=== PATIENT | male | born 1965 | race Caucasian/White ===

== ENCOUNTER → 2020-01-21 | Outpatient (CLI) | payer BC ==
[2014-02-12 16:15] VITALS: BP 128/74
[~2020-01-21] MED LIST: ASPI325T11 PO; ATOR40TA PO; LEVO150T5 PO; LISI10TA2 PO; TERB250T PO
--- NOTE | 2020-01-21 13:34 | RAD ---
CT THORAX WO INDICATION: Reason: SMOKER X 30 YEARS, CHRONIC COUGH, LUQ PAIN / Spl. Instructions: / History: . COMPARISON STUDY: None. TECHNIQUE: Unenhanced axial images were obtained through the lungs and upper abdomen. Coronal and sa gittal multiplanar reconstructions were also obtained. PQRS compliance statement: One or more of the following individualized dose reduction techniques were utilized for this examinat ion: 1. Automated exposure control 2. Adjustment of the mA and/or kV according to patient size 3. Use of iterative reconstruction technique FINDINGS: Lungs and Airways: No pulmonary mass or confluent consolidation. Mild ill-defined upper lung centrilo bular groundglass nodules. Few indeterminate solid pulmonary nodules with brand representative nodule as fo llows: Left lower lobe 4 mm nodule (series 5 image 226). Normal central airways. Pleura: The pleural spaces are normal. Heart and Mediastinum: The visualized thyroid gland is normal in size and attenuation. No axillary or supraclavicular lymphadenopathy. No mediastinal, hilar or retrocrural lymphadenopathy. Calcified med iastinal and right hilar lymph nodes consistent with remote granulomatous disease. The heart and mamie cardium are within normal limits. The great vessels of the thorax are normal. Abdomen: The visualized abdominal organs demonstrate no abnormality. Bones and Soft Tissues: The visualized skeletal structures and soft tissues of the chest wall are wit hin normal limits. IMPRESSION: 1. No pulmonary mass or consolidation. No thoracic lymphadenopathy. 2. Mild ill-defined upper lung centrilobular groundglass nodules, probably respiratory bronchiolitis. 3. Few small indeterminate solid pulmonary nodules measuring up to 4 mm. Consider optional 12 month f ollow-up CT, given risk factors. Electronically signed by: James Hi MD (01/21/2020 12:17 PM) [id number]
== END ==
LOC: CT 09:45
PROVIDERS: ATTEND Physician Assistant
DX: R91.1 Solitary pulmonary nodule (principal); R05 Cough; F17.200 Nicotine dependence, unspecified, uncomplicated
CPT/HCPCS: 71250

== ENCOUNTER → 2020-03-07 | Outpatient (CLI) | payer BC ==
[2014-02-12 16:15] VITALS: BP 128/74
--- NOTE | 2020-03-07 12:16 | RAD ---
Scrotal ultrasound 03/07/2020 CLINICAL HISTORY: Scrotal mass. TECHNIQUE: Using a combination of real-time ultrasound imaging and color-flow and pulse Doppler imagi ng techniques, duplex evaluation of the scrotal sac and its contents was performed. Multiple images w ere obtained. FINDINGS: Both testicles are within normal limits in size and echogenicity. The right testicle measur es 4.1 x 3.2 x 3.1 cm in longitudinal, transverse, and AP dimensions. The left testicle measures 4.3 x 2.8 x 2.6 cm in size. Normal color-flow and pulse Doppler imaging to both testicles is seen. A 1.1 cm cyst is seen involving the right epididymal head. The right epididymis is enlarged. Increase d color flow to the right epididymis is seen compared to the left. These findings could reflect epidi dymitis. The left epididymis is normal in size and echogenicity. No hydrocele or varicocele is seen. IMPRESSION: 1. 1.1 cm cyst is seen involving the right epididymal head. 2. Findings suggestive of right epididymitis. Electronically signed by: Dc Nath MD (03/07/2020 12:13 PM) [id number]
== END ==
LOC: US 09:59
PROVIDERS: ATTEND Physician Assistant
DX: N50.3 Cyst of epididymis (principal); N50.89 Other specified disorders of the male genital organs
CPT/HCPCS: 76870

== ENCOUNTER 2021-06-05 00:48 | Emergency (ER) | payer BC ==
[~2021-06-05] VITALS: Ht 172.7 cm; Wt 82.0 kg
[~2021-06-05 00:48] MED LIST changes: +LISI10TA16 PO; -LISI10TA2 PO
--- NOTE | 2021-06-05 01:11 | PHYS DOC ---
Past History Past Medical History: Other Past Surgical History: Other Additional Past Surgical Histo: BKA Alcohol Use: Occasionally Drug Use: None Adult General Chief Complaint Chief Complaint: CHEST PAIN HPI HPI Patient is a 56-year-old male with a past medical history of hypertension and hypothyroidism who presents with a chief complaint of intermittent centralized chest discomfort, 6 out of 10 at its worst, with no radiation over the past 6 hours. Denies any recent trauma, travels, illnesses, fevers dyspnea on exertion, orthopnea, PND or edema. Denies any abdominal pain, nausea, vomiting, diarrhea. Denies any known ill contacts. Denies any history of VTE. Denies any numbness/weakness/tingling. Denies any trouble sitting, standing or walking. Review of Systems Review of Systems Review of systems otherwise unremarkable except noted in HPI Allergies Allergies Allergies Coded Allergies Type Severity Reaction Last Updated Verified No Known Drug Allergies 06/05/21 No Physical Exam Physical Exam Constitutional: Well developed, well nourished, no acute distress, non-toxic appearance. [] HENT: Normocephalic, atraumatic, bilateral external ears normal, oropharynx moist, no oral exudates, nose normal. [] Eyes: conjunctiva normal, no discharge. [] Neck: Normal range of motion, no tenderness, supple, no stridor. [] Cardiovascular:Heart rate regular rhythm, no murmur [] Lungs & Thorax: Bilateral breath sounds clear to auscultation [] Abdomen: soft, no tenderness, no masses, no pulsatile masses. [] Skin: Warm, dry, no erythema, no rash. [] Back: No tenderness, no CVA tenderness. [] Extremities: No tenderness, no cyanosis, no clubbing, ROM intact, no edema. [] Neurologic: Alert and oriented X 3, normal motor function, normal sensory function, able to sit, stand and walk without issue, no focal deficits noted. [] Psychologic: Affect normal, judgement normal, mood normal. [] Current Patient Data Vital Signs Vital Signs Date Time Temp Pulse Resp B/P (MAP) Pulse Ox O2 Delivery O2 Flow Rate FiO2 06/05/21 00:55 97.7 68 18 163/95 (117) 100 EKG EKG [] Radiology/Procedures Radiology/Procedures [] Heart Score C/O Chest Pain: Yes HEART Score for Chest Pain: HEART Score for Chest Pain Response (Comments) Value History Slighlty/Non-Suspicious 0 ECG Normal 0 Age >45 - < 65 1 Risk Factors 1 or 2 Risk Factors 1 Troponin < Normal Limit 0 Total 2 Risk Factors: Risk Factors: DM, Current or recent (<one month) smoker, HTN, HLP, family history of CAD, obesity. Risk Scores: Risk Factors: DM, Current or recent (<one month) smoker, HTN, HLP, family history of CAD, obesity. Course & Med Decision Making Course & Med Decision Making Patient is a 56-year-old male who presents with a chief complaint of 6 hours of intermittent chest discomfort. No symptoms in the emergency department however. Vital signs notable for hypertension. Physical exam noted above. EKG with a normal rate, normal rhythm, no STEMI. Troponin normal. Low risk Wells. Dimer negative. Chest x-ray suggestive of emphysema. Patient is greater than [id number] smoker. States he is been thinking about quitting. Discussed benefits of quitting and risks of continuing. Advised to follow-up in the morning with primary care physician to discuss these issues. Discussed initial plan of nicotine patch and gum. Gave strict return precautions to the ED. Patient grateful, verbalized understanding and agreed with plan of discharge. [] Dragon Disclaimer Dragon Disclaimer This electronic medical record was generated, in whole or in part, using a voice recognition dictation system. Departure Departure: Impression: Primary Impression: Chest pain Additional Impression: Emphysema of lung Disposition: HOME / SELF CARE / HOMELESS Condition: STABLE Referrals: SUSANNE FULTON (PCP) Patient Instructions: Chest Pain (Nonspecific), Chronic Obstructive Pulmonary Disease, Chronic Obstructive Pulmonary Disease Exacerbation Additional Instructions: Thank you for coming into the emergency department tonight and allowing us to take care of you. Please read the attached information carefully to go over things we discussed. It is very important that you follow-up in the morning with your primary care physician to update on your ED visit and set up a follow- up as soon as you can for reevaluation. Please continue take all your medications as prescribed. Please come back to the emergency department with new or concerning symptoms as we discussed. Problem Qualifiers JAKE MONAHAN MD Jun 05, 2021 01:11
[2021-06-05 01:39] LABS: CALCIUM 8.8 mg/dL (8.5-10.1); CREATININE 1.2 mg/dL (0.7-1.3); GFR 62.9; POTASSIUM 4.3 mmol/L (3.5-5.1)
[2021-06-05 01:45] LABS: ALBUMIN 3.5 g/dL (3.4-5.0); ALBUMIN/GLOBULIN RATIO 1.2 (1.0-1.7); TOTAL BILIRUBIN 0.4 mg/dL (0.2-1.0); TOTAL PROTEIN 6.4 g/dL (6.4-8.2)
[2021-06-05 02:01] LABS: BASO # 0.1 x10^3/uL (0.0-0.2); BASO % 1 % (0-3); EOS # 0.5 x10^3/uL (0.0-0.7); EOS % 5 % (0-3); HEMATOCRIT 43.9 % (39.0-53.0); HEMOGLOBIN 15.3 g/dL (13.0-17.5); LYMPH % 32 % (24-48); MEAN CORPUSCULAR HEMOGLOBIN 32 pg (25-35); MEAN CORPUSCULAR HGB CONC 35 g/dL (31-37); MEAN CORPUSCULAR VOLUME 91 fL (79-100); MONO # 0.7 x10^3/uL (0.0-1.1); MONO % 8 % (0-9); NEUT % 53 % (31-73); PLATELET COUNT 233 x10^3/uL (140-400); RED BLOOD COUNT 4.82 x10^6/uL (4.30-5.70); RED CELL DISTRIBUTION WIDTH 12.7 % (11.5-14.5); WHITE BLOOD COUNT 9.3 x10^3/uL (4.0-11.0)
--- NOTE | 2021-06-05 02:16 | RAD ---
Study: XR CHEST 1V Indication: Chest pain. Comparison: 04/16/2012 Findings: Unchanged cardiomediastinal silhouette and crispin. Increased lung volumes and relatively flattened diap hragm. Mild generalized interstitial prominence. No lobar consolidation or pneumothorax. No significa nt effusion with only minimal blunting of the costophrenic angles. Impression: Constellation of findings suggestive of emphysema. No acute radiographic abnormality of the chest. Electronically signed by: JES MICHELLE MD (06/05/2021 2:13 AM) [facility]
[2021-06-05 02:33] VITALS: BP 152/79
--- NOTE | 2021-06-06 19:16 | EKG ---
[address] [address] Test Date: 2021-06-05 Test Time: 00:58:25 Pat Name: GALILEA PFEIFFER Department: Room: Gender: M Director Clinical Applications: : 1965 Requested By: JAKE MONAHAN Order Number: [id number] Reading MD: Bang Rob Measurements Intervals [place] Rate: 66 P: 56 CO: 178 QRS: 60 QRSD: 82 T: 54 QT: 362 QTc: 381 Interpretive Statements SINUS RHYTHM POSSIBLE SEPTAL Q WAVE Electronically Signed On 06-08-2021 18:35:20 CDT by Bang Rob
== END 2021-06-05 02:40 | disposition home or self-care (01) ==
LOC: ER 00:48
DX: R07.89 Other chest pain (principal); J43.8 Other emphysema; I10 Essential (primary) hypertension; E03.9 Hypothyroidism, unspecified
CPT/HCPCS: 36415; 71045; 80053; 83690; 83735; 84484; 85025; 85379; 85610; 85730; 93005; 99285